=== PATIENT | female | born 1990 | race Caucasian/White ===

== ENCOUNTER 2017-06-28 20:13 | Outpatient (CLI) | payer MEDICAID, OTHER ==
[~2017-06-28] VITALS: Ht 160 cm; Wt 68.3 kg
[2017-06-28 21:16] VITALS: Ht 160 cm; Wt 68.3 kg
[2017-06-28 21:17] VITALS: BP 99/58; PULSE 71; RESP 18
[2017-06-28] MEDS ORDERED: PRENAT PO (21:19)
[2017-06-28 21:32] LABS: ALBUMIN 3.7 g/dl (3.3-4.9); ALBUMIN/GLOBULIN RATIO 1.19; BILIRUBIN,INDIRECT 0.3 mg/dl (0-1.1); BILIRUBIN,TOTAL 0.3 mg/dl (0.2-1.3); CALCIUM 8.6 mg/dl (8.4-10.2); CREATININE 0.5 mg/dl (0.44-1.00); POTASSIUM 3.8 mmol/L (3.5-5.1); TOTAL PROTEIN 6.8 g/dl (6.1-8.1)
[2017-06-28 21:55] LABS: UR RBC 0 /HPF (0-5)
[2017-06-28 21:58] LABS: ADD UMIC NO; UR ASCORBIC ACID NEGATIVE (NEGATIVE); UR BILIRUBIN (Dip) NEGATIVE (NEGATIVE); UR BLOOD (Dip) NEGATIVE (NEGATIVE); UR CLARITY CLEAR (CLEAR); UR COLOR STRAW (YELLOW); UR GLUCOSE (Dip) NEGATIVE (NEGATIVE); UR KETONES (Dip) NEGATIVE (NEGATIVE); UR LEUKOCYTE ESTERASE (Dip) NEGATIVE Leu/ul (NEGATIVE); UR NITRITE (Dip) NEGATIVE (NEGATIVE); UR SPECIFIC GRAVITY (Dip) 1.003 (1.003-1.030); UR TOTAL PROTEIN (Dip) NEGATIVE (NEGATIVE); UR UROBILINOGEN (Dip) NEGATIVE (NEGATIVE)
--- NOTE | 2017-06-28 22:06 | RADRPT ---
PROCEDURE: Obstetrical ultrasound, limited. CLINICAL INDICATION: Pelvic pain. TECHNIQUE: Multiple sonographic images of the pelvis were obtained using transabdominal technique . Images were obtained with tan scale and color Doppler. Transvaginal evaluation of the cervix was also performed. The images were reviewed on a PACS workstation. COMPARISON: No prior studies are available for comparison. FINDINGS: There is a single living intrauterine gestation with the fetus in a breech presentation. hear t tones of 146 beats per minute are identified. The placenta is posterior in location, grade 0. Th e cervix is closed measuring 5.2 cm. IMPRESSION: Single viable intrauterine gestation. Cervical length of 5.2 cm. .Panchito Falk MD, Date Time Electronically viewed and signed by .Panchito Falk MD, MD on 06/28/2017 22:05 .T/
--- NOTE | 2017-06-28 22:07 | RADRPT ---
PROCEDURE: Abdominal ultrasound, limited. CLINICAL INDICATION: Abdominal pain. TECHNIQUE: Multiple real-time images were acquired of the patient's right upper abdomen utilizing a high resolution transducer. COMPARISON: None FINDINGS: The liver demonstrates normal echogenicity and size measuring 17.1 cm. There is no focal mass or in trahepatic biliary ductal dilatation. The portal vein is patent. The gallbladder is not distended. No gallstones are identified. There is no pericholecystic fluid or gallbladder wall thickening. The common bile duct measures 3.7 mm in maximal dimension. The visualized portions of the pancreas are unremarkable. No free fluid is identified. The right kidney is normal size and echogenicity measuring 11.0 x 4.9 x 4.3 cm. There is no focal r enal mass or echogenic calculus identified. There is mild right-sided hydronephrosis. IMPRESSION: Mild right-sided hydronephrosis. .Panchito Falk MD, MD Date Time Electronically viewed and signed by .Panchito Falk MD, MD on 06/28/2017 22:07 .T/
--- NOTE | 2017-06-29 00:01 | PN ---
Triage Information Date/Time June 29, 2017 Weeks of Gestation 20 weeks : 2 Para: 1 Diabetes: none Hypertention: none Additional information Pt came in complaining of a sudden onset of right sided abdominal pain. It started at 1900 and is beginning to dissipate since 2200. No nausea, vomiting, diarrhea, constipation or any other associated issues. Last BM yesterday. No VB or leaking.+FM. PMHx: none. PSHx: none. NKDA. Objective Vital Signs Date Time Temp Pulse Resp B/P Pulse Ox O2 Delivery O2 Flow Rate FiO2 06/28/17 21:17 97.7 71 18 99/58 Room Air Heart Rate: 130's Contractions: None Results/Medications Result Diagram: 06/28/172028 Results 24 hrs Laboratory Tests Test 06/28/17 20:29 06/28/17 21:10 Sodium Level 134 L Potassium Level 3.8 Chloride Level 101 Carbon Dioxide Level 22 Anion Gap 15 Blood Urea Nitrogen 6 L Creatinine 0.50 Glucose Level 80 Calcium Level 8.6 Total Bilirubin 0.3 Direct Bilirubin 0.00 Indirect Bilirubin 0.3 Aspartate Amino Transf (AST/SGOT) 25 Alanine Aminotransferase (ALT/SGPT) 39 Alkaline Phosphatase 73 Total Protein 6.8 Albumin 3.7 Globulin 3.10 Albumin/Globulin Ratio 1.19 Urine Color STRAW Urine Clarity CLEAR Urine pH 6.0 Urine Specific [place] 1.003 Urine Ketones NEGATIVE Urine Nitrite NEGATIVE Urine Bilirubin NEGATIVE Urine Urobilinogen NEGATIVE Urine Leukocyte Esterase NEGATIVE Urine Microscopic RBC 0 Urine Microscopic WBC 0 Urine Hemoglobin NEGATIVE Urine Glucose NEGATIVE Urine Total Protein NEGATIVE Imaging Results CX is closed and long at 5.2 cm. Posterior placenta. Liver, kidney pancreas and gallbladder as visualized are normal. ALT/AST 39/25. U/A negative. Assessment/Plan A: IUP at 20 weeks. Right sided abdominal pain. P: Pt reassured and D/C'ed home. Keep appt with PMD on Saturday 06/30. KALI GRIDER MD Jun 29, 2017 00:01
== END 2017-06-29 00:15 | disposition home or self-care (01) ==
LOC: L-D 20:13 → OBT 20:13
PROVIDERS: ATTEND Obstetrics & Gynecology
DX: O26.892 Other specified pregnancy related conditions, second trimester (principal); R10.9 Unspecified abdominal pain; Z3A.20 20 weeks gestation of pregnancy
CPT/HCPCS: 36415; 76705; 76817; 80053; 81003; Z7500; G0463